=== PATIENT | female | born 1965 | race Caucasian/White ===

== ENCOUNTER 2017-08-10 13:24 | Emergency (ER) | payer BC, OTHER ==
[~2017-08-10] VITALS: Ht 157.5 cm; Wt 75.0 kg
[~2017-08-10 13:24] MED LIST: ALPR0.25 PO; CARD120C4 PO; CYMB60CA PO
[2017-08-10 13:35] VITALS: BP 135/78; PULSE 130; RESP 18; TEMP 97.7; O2SAT 100
[2017-08-10] MEDS ORDERED: SODIUM CHLORID 0.9% 500 ML INJ 500 ML IV ONE (14:00)
[2017-08-10] MEDS ORDERED: SODIUM CHLORIDE 0.9% FLUSH 10 ML FLUSH IVF PRN (14:00)
[2017-08-10 14:13] LABS: AUTOMATED NEUTROPHIL # 8.1 TH/MM3 (1.8-7.7); BASOPHIL # 0.1 TH/MM3 (0-0.2); BASOPHIL % 0.8 % (0.0-2.0); EOSINOPHIL # 0.1 TH/MM3 (0-0.4); EOSINOPHIL % 0.7 % (0.0-4.0); HEMATOCRIT 40.7 % (35.0-46.0); LYMPHOCYTE # 2.3 TH/MM3 (1.0-4.8); MEAN CELL VOLUME 63.3 FL (80.0-100.0); MEAN CORPUSCULAR HEMOGLOBIN 19.8 PG (27.0-34.0); MEAN CORPUSCULAR HGB CONC 31.3 % (32.0-36.0); MONO % 6.3 % (0.0-8.0); NEUT % 72.2 % (16.0-70.0); PLATELET COUNT 229 TH/MM3 (150-450); RED BLOOD COUNT 6.43 MIL/MM3 (4.00-5.30); RED CELL DISTRIBUTION WIDTH 15.5 % (11.6-17.2); WHITE BLOOD COUNT 11.3 TH/MM3 (4.0-11.0)
[2017-08-10] MEDS ORDERED: ALPR0.5T3 PO (14:14)
[2017-08-10] MEDS ORDERED: CARD180C5 PO (14:14)
[2017-08-10] MEDS ORDERED: CYMB60CA PO (14:14)
[2017-08-10 14:15] LABS: HEMO FLAGS AUTO DIFF
--- NOTE | 2017-08-10 14:19 | PD ---
HPI Chief Complaint: Cardiac Complaint Time Seen by Provider: 13:54 Travel History International Travel<30 days: No Contact w/Intl Traveler<30days: No Traveled to known affect area: No History of Present Illness HPI 51-year-old female presents with palpitation feeling for the past hour. 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 Delacruz recently increased her Cardizem to 180 mg. She states that she has history of SVT. She states she has tried vagal maneuvers at home. She denies any complaints other than mild shortness of breath. Quality is palpitations. Severity is progressive. She states her heart rate at home was in the 150s. PFSH Past Medical History Anxiety: Yes (THALASSEMIA) Depression: Yes Heart Rhythm Problems: Yes (hx SVT) Cardiovascular Problems: Yes (SVT) Diminished Hearing: No Kidney Stones: Yes Tetanus Vaccination: > 5 Years ?: Not Menopausal: Yes Past Surgical History Section: Yes Social History Alcohol Use: Yes (RARE) Tobacco Use: No Substance Use: No Allergies-Medications (Allergen,Severity, Reaction): Coded Allergies: No Known Allergies (Verified , 08/10/17) Reported Meds & Prescriptions Reported Meds & Active Scripts Active Reported Alprazolam 0.5 Mg Tab 0.5 Mg PO DAILY PRN Cardizem CD 24 HR (Diltiazem CD 24 HR) 180 Mg Caper 180 Mg PO HS Cymbalta DR (Duloxetine HCl) 60 Mg Capdr 60 Mg PO HS Review of Systems Except as stated in HPI: all other systems reviewed are Neg Physical Exam Narrative GENERAL: Well-nourished, well-developed patient. SKIN: Warm and dry. HEAD: Normocephalic and atraumatic. EYES: No injection or drainage. ENT: No nasal drainage noted. NECK: Supple, trachea midline. CARDIOVASCULAR: Tachycardic rate and regular rhythm RESPIRATORY: Breath sounds equal bilaterally. No accessory muscle use. GASTROINTESTINAL: Abdomen soft, non-tender, nondistended. EXTREMITIES: No edema. BACK: Nontender without obvious deformity. NEUROLOGICAL: Awake and alert. Motor and sensory grossly within normal limits. Normal speech. Data Data Last Documented VS Vital Signs Date Time Temp Pulse Resp B/P (MAP) Pulse Ox O2 Delivery O2 Flow Rate FiO2 08/10/17 15:15 88 18 133/67 (89) 98 Room Air 08/10/17 13:35 97.7 Orders Orders Electrocardiogram (08/10/17 14:00) Ckmb (Isoenzyme) Profile (08/10/17 14:00) Complete Blood Count With Diff (08/10/17 14:00) Comprehensive Metabolic Panel (08/10/17 14:00) Magnesium (Mg) (08/10/17 14:00) Prothrombin Time / Inr (Pt) (08/10/17 14:00) Act Partial Throm Time (Ptt) (08/10/17 14:00) Troponin I (08/10/17 14:00) Chest, Single Ap (08/10/17 14:00) Ecg Monitoring (08/10/17 14:00) Bilateral Bp Monitoring (08/10/17 14:00) Iv Access Insert/Monitor (08/10/17 14:00) Oximetry (08/10/17 14:00) Sodium Chloride 0.9% Flush (Ns Flush) (08/10/17 14:00) Sodium Chlorid 0.9% 500 Ml Inj (Ns 500 M (08/10/17 14:00) Labs Laboratory Tests Test 08/10/17 14:00 White Blood Count 11.3 TH/MM3 Red Blood Count 6.43 MIL/MM3 Hemoglobin 12.7 GM/DL Hematocrit 40.7 % Mean Corpuscular Volume 63.3 FL Mean Corpuscular Hemoglobin 19.8 PG Mean Corpuscular Hemoglobin Concent 31.3 % Red Cell Distribution Width 15.5 % Platelet Count 229 TH/MM3 Mean Platelet Volume 10.7 FL Neutrophils (%) (Auto) 72.2 % Lymphocytes (%) (Auto) 20.0 % Monocytes (%) (Auto) 6.3 % Eosinophils (%) (Auto) 0.7 % Basophils (%) (Auto) 0.8 % Neutrophils # (Auto) 8.1 TH/MM3 Lymphocytes # (Auto) 2.3 TH/MM3 Monocytes # (Auto) 0.7 TH/MM3 Eosinophils # (Auto) 0.1 TH/MM3 Basophils # (Auto) 0.1 TH/MM3 CBC Comment AUTO DIFF Differential Comment AUTO DIFF CONFIRMED Target Cells 1+ Ovalocytes 2+ Prothrombin Time 9.9 SEC Prothromb Time International Ratio 0.9 RATIO Activated Partial Thromboplast Time 28.1 SEC Blood Urea Nitrogen 19 MG/DL Creatinine 1.20 MG/DL Random Glucose 95 MG/DL Total Protein 8.2 GM/DL Albumin 3.9 GM/DL Calcium Level 9.7 MG/DL Magnesium Level 2.3 MG/DL Alkaline Phosphatase 64 U/L Aspartate Amino Transf (AST/SGOT) 21 U/L Alanine Aminotransferase (ALT/SGPT) 21 U/L Total Bilirubin 0.8 MG/DL Sodium Level 141 MEQ/L Potassium Level 3.6 MEQ/L Chloride Level 107 MEQ/L Carbon Dioxide Level 22.3 MEQ/L Anion Gap 12 MEQ/L Estimat Glomerular Filtration Rate 47 ML/MIN Total Creatine Kinase 67 U/L Troponin I LESS THAN 0.02 NG/ML MDM Medical Decision Making Medical Screen Exam Complete: Yes Emergency Medical Condition: Yes Medical Record Reviewed: Yes (past history confirmed) Interpretation(s) EKG is tachycardic in the 120s with ST depression inferior laterally without ST segment elevation it is regular in rhythm CBC & BMP Diagram 08/10/17 14:00 Total Protein 8.2, Albumin 3.9, Calcium Level 9.7, Magnesium Level 2.3, Alkaline Phosphatase 64, Aspartate Amino Transf (AST/SGOT) 21, Alanine Aminotransferase (ALT/SGPT) 21, Total Bilirubin 0.8 Differential Diagnosis SVT, sinus tachycardia, A. fib RVR Narrative Course Will check blood work, chest x-ray, EKG and discuss with her auto body builder apprentice [id number] when I went to check on patient she was in sinus rhythm in the 70s and states she converted when the x-ray tech asked her to take a deep breath labs without emergent process, Patient denies any new complaints and states that they are feeling better. Patient happy with care, all questions answered. Patient knows that follow up is incumbent on them and to return to the emergency room immediately if new or worsening symptoms develop. Patient given strict return precautions, vitals reviewed and are normal, agrees to further workup as an outpatient. Physician Communication Physician Communication dr lee states ok to follow in office with dr delacruz Diagnosis Primary Impression: Supraventricular tachycardia Referrals: Alondra Delacruz MD call for appointment Patient Instructions: General Instructions Additional Instructions: return as needed Med/Other Pt SpecificInfo: No Change to Meds Disposition: 01 DISCHARGE HOME Condition: Stable Ibis Kent MD Aug 10, 2017 14:19
[2017-08-10 14:22] VITALS: BP_SYST 128; BP_SYST 138; BP_DIAS 84; PULSE 125; RESP 18; O2SAT 98
[2017-08-10 14:27] LABS: CHLORIDE 107 MEQ/L (98-107); POTASSIUM 3.6 MEQ/L (3.5-5.1); SODIUM (NA) 141 MEQ/L (136-145)
[2017-08-10 14:31] LABS: APTT (PATIENT) 28.1 SEC (24.3-30.1); INTERNATIONAL NORMALIZED RATIO 0.9 RATIO; PROTHROMBIN TIME - PATIENT 9.9 SEC (9.8-11.6)
[2017-08-10 14:32] LABS: ANION GAP 12 MEQ/L (5-15); BICARBONATE 22.3 MEQ/L (21.0-32.0); BLOOD UREA NITROGEN 19 MG/DL (7-18); MAGNESIUM 2.3 MG/DL (1.5-2.5)
[2017-08-10 14:35] LABS: ALT (GPT) 21 U/L (10-53); AST (GOT) 21 U/L (15-37); GLOMERULAR FILTRATION RATE 47 ML/MIN (>89)
[2017-08-10 14:36] LABS: TOTAL BILIRUBIN ADULT 0.8 MG/DL (0.2-1.0)
--- NOTE | 2017-08-10 14:37 | RADRPT ---
EXAM DATE/TIME: 08/10/2017 14:29 [place] COMPARISON: CHEST SINGLE AP, February 09, 2016, 12:11. INDICATIONS : Short of breath MEDICAL HISTORY : None. SURGICAL HISTORY : None. ENCOUNTER: Initial ACUITY: 1 day PAIN SCORE: 0/10 LOCATION: Bilateral chest FINDINGS: Portions inspiratory effort with subtle bilateral lower lobe airspace disease. Cardiomediastinal cont ours are within normal limits. Remainder the exam is unchanged. CONCLUSION: 1. Poor inspiratory effort would presumed bibasilar atelectasis. Mushtaq Garcia MD on August 10, 2017 at 14:34 Board Certified Radiologist. This report was verified electronically.
[2017-08-10 14:38] LABS: ALKALINE PHOSPHATASE 64 U/L (45-117)
[2017-08-10 15:08] LABS: CREATINE KINASE 67 U/L (26-192)
[2017-08-10 15:12] LABS: OVALOCYTES 2+ (NORMAL); SCAN/DIFF AUTO DIFF CONFIRMED; TARGET CELLS 1+ (NORMAL)
[2017-08-10 15:15] VITALS: BP 133/67; PULSE 88; RESP 18; O2SAT 98
--- NOTE | 2017-08-10 15:58 | EKG ---
Date Performed: 08/10/2017 Time Performed: 13:57:45 PTAGE: 51 years EKG: SUPRAVENTRICULAR TACHYCARDIA, POSSIBLY AV MARIA DE JESUS REENTRANT TACHYCARDIA ST/T-WAVE ABNORMALITY , CONSIDER INFERIOR AND LATERAL ISCHEMIA ABNORMAL ECG NO PREVIOUS TRACING DOCTOR: Ismael Ellis Interpretating Date/Time 08/10/2017 15:55:55
[2017-08-10 16:28] VITALS: BP 136/62
== END 2017-08-10 16:29 | disposition home or self-care (01) ==
LOC: PHED 13:24
DX: I47.1 Supraventricular tachycardia (principal); R94.31 Abnormal electrocardiogram [ECG] [EKG]; Z86.79 Personal history of other diseases of the circulatory system; Z86.59 Personal history of other mental and behavioral disorders; Z87.442 Personal history of urinary calculi
CPT/HCPCS: 71010; 80053; 82550; 83735; 84484; 85025; 85610; 85730; 93005; 96360; 99285; J7040

== ENCOUNTER 2018-05-06 06:20 | Day surgery (SDC) | payer BC ==
[~2018-05-06] VITALS: Ht 157.5 cm; Wt 77.5 kg
[2018-05-06] VITALS (13 sets, daily range): BP systolic 104–140; BP diastolic 48–72; PULSE 46–96; RESP 16–18; TEMP 97.9–98; O2SAT 94–100
[~2018-05-06 06:20] MED LIST changes: -ALPR0.25 PO; +ALPR0.5T3 PO; -CARD120C4 PO; +CARD180C5 PO
[2018-05-06] MEDS ORDERED: METOPROLOL TARTRATE 25 MG TAB PO PRN (06:45)
[2018-05-06] MEDS ORDERED: LACTATED RINGER'S 1000 ML IV PRN (06:45)
[2018-05-06] MEDS ORDERED: SODIUM CHLORID 0.9% 500 ML INJ 500 ML IV SCH (06:45)
[2018-05-06] MEDS ORDERED: SODIUM CHLORID 0.9% 500 ML IV PRN (06:45)
[2018-05-06] MEDS ORDERED: CHLORHEXIDINE GLUCONATE 2 % 1 PACK (2 CLOTHS) TOPICAL PRN (06:45)
[2018-05-06] MEDS ORDERED: POVIDONE IODINE 5% (ANTISEPSIS KIT) 4 APPLICATIONS EACH NARE PRN (06:45)
[2018-05-06] MEDS ORDERED: LORazepam 1 MG TAB SL SCH (06:45)
[2018-05-06] MEDS ORDERED: MULTTAB67 PO (07:04)
[2018-05-06] MEDS ORDERED: METO50TA PO (07:04)
[2018-05-06 07:18] LABS: AUTOMATED NEUTROPHIL # 5.3 TH/MM3 (1.8-7.7); BASOPHIL # 0.1 TH/MM3 (0-0.2); BASOPHIL % 0.7 % (0.0-2.0); BICARBONATE 25.9 MEQ/L (21.0-32.0); CALCIUM 8.5 MG/DL (8.5-10.1); CREATININE 0.84 MG/DL (0.50-1.00); EOSINOPHIL # 0.1 TH/MM3 (0-0.4); EOSINOPHIL % 1.6 % (0.0-4.0); HEMATOCRIT 35.6 % (35.0-46.0); HEMOGLOBIN 11.3 GM/DL (11.6-15.3); LYMPH % 27.3 % (9.0-44.0); LYMPHOCYTE # 2.3 TH/MM3 (1.0-4.8); MEAN CELL VOLUME 61.5 FL (80.0-100.0); MEAN CORPUSCULAR HEMOGLOBIN 19.4 PG (27.0-34.0); MEAN CORPUSCULAR HGB CONC 31.6 % (32.0-36.0); MEAN PLATELET VOLUME 10.9 FL (7.0-11.0); MONO % 7.5 % (0.0-8.0); MONOCYTE # 0.6 TH/MM3 (0-0.9); NEUT % 62.9 % (16.0-70.0); PLATELET COUNT 253 TH/MM3 (150-450); PROTHROMBIN TIME - PATIENT 10.6 SEC (9.8-11.6); RED CELL DISTRIBUTION WIDTH 16.6 % (11.6-17.2); WHITE BLOOD COUNT 8.5 TH/MM3 (4.0-11.0)
[2018-05-06] MEDS ORDERED: HEPARIN-NS/PF INJ 500 ML ONE (09:19)
[2018-05-06] MEDS ORDERED: ISOPROTERENOL INJ PREMIX 50 ML IV ONE (09:39)
[2018-05-06] MEDS ORDERED: MIDAZOLAM HCL 2 MG/2 ML VIAL ONE (10:52)
--- NOTE | 2018-05-06 10:55 | CATHPROC ---
[employer] HIS Report Study Information Study Number Admission Scheduled Start Study Start [id number] May 06 2018 6:20AM 05/06/2018 May 06 2018 9:00AM [place] [facility] Electrophysiology Study Admit Source Facility Department Emergency department [facility] - Fire Engine Pump Operator Physician and Clinical Staff Initial Patito Aguilera Daycare Manager Tiff Vallejo,VIDEO EDITOR TECH2 Daycare Manager Shaila Rider,PUBLIC RELATIONS SUPERVISOR Other Anesthesia, OPERATING ROOM SCHEDULER Recorder Brittany Banerjee ,JETHRON Scrub Jeff iWnn,RT(R) Procedures Performed Procedure Location (Site) Vessel Name Ablation Procedure RF Ablation Isthmus Other Equipment Time Missile Mechanic Description Size Mfg Part Number Used/Scraped BIOSENSE BACH CATHETER, CELSIUS, 4MM, D [id number] 10:27 FR 7 Used INC. TYPE QUAD *[id number] 09:43 Echo360 BLANKET,WARM AIR CCL * Used *[id number] 09:43 Echo360 PACK, CCL CUSTOM * Used *[id number] 09:43 VideoLens PACER GOODWIN, LIMB * 2530 *[id number] Used [id number] 09:50 [employer] MEDICAL CATHETER, JSN, QUAD FR 5 Used *[id number] 09:50 [employer] MEDICAL CATHETER, JSN, QUAD FR 5 Used *[id number] 09:52 [employer] MEDICAL CATHETER, JSN, QUAD FR 5 Used *[id number] 09:52 [employer] MEDICAL CATHETER, JSN, QUAD FR 5 Used *[id number] 09:43 [employer] ALICE MEDICAL ELECTRODE KIT, LAZ X SURFACE * Used *[id number] 09:44 [employer] SHEATH, EPS, FR5 FAST CATH FR 5 Used *[id number] 09:44 [employer] MEDICAL SHEATH, EPS, FR5 FAST CATH FR 5 Used *[id number] 09:44 [employer] MEDICAL SHEATH, EPS, FR5 FAST CATH FR 5 Used *[id number] 09:44 [employer] MED[employer] SHEATH, EPS, FR6 FAST CATH FR 6 Used *[id number] 09:44 [employer] MEDICAL SHEATH, EPS, FR8 FAST CATH FR 8 Used *[id number] [facility] P[facility], ELECTROSURGICAL 09:43 * [id number] *[id number] Used SURGICAL GROUNDING (BLUE) Labs Hgb (g/dl) Hct (%) WBC (l/cumm) Platelets (thousands) 11.60-17.00 35.00-51.00 4.00-11.00 150.00-450.00 11.3 35.6 8.5 253 Glucose (mg/dl) BUN (mg/dl) Creatinine (mg/dl) BUN:Creatinine (1:x) 74.00-106.00 7.00-18.00 0.50-1.30 10.00-20.00 84 18 0.8 22.5 Na (meq/l) K (meq/l) 136.00-145.00 3.50-5.10 143 3.7 INR (PTT:PT) 0.90-1.10 1 CPK-MB (ng/ML) 0.50-3.60 Not Drawn Medication Medication Total Dose (Bolus/Oral) Medication Total Dosage/Unit 1% XYLOCAINE 20 mL Medications (Bolus/Oral) Medication Time Given Dosage/Unit Administered By Reason 1% XYLOCAINE 05/06/2018 9:42:12 AM 10 mL Patito Ayers 10 mL 1% XYLOCAINE given in lab by Patito Ayers in Left Groin via Subcutaneous. Ordered by Stanley Ayers 1% XYLOCAINE 05/06/2018 9:46:10 AM 10 mL Patito Ayers 10 mL 1% XYLOCAINE given in lab by Patito Ayers in Right Groin via Subcutaneous. Ordered by Hedy Ayers. Medication (Drip) Medication Time Given Dosage/Unit Concentration/Unit Diluent (ml) Solution ISUPREL 05/06/2018 9:55:50 AM 4 mcg/min 1 mg 250 NaCl .9 4 mcg/min ISUPREL given in lab by Anesthesia, OPERATING ROOM SCHEDULER via Peripheral IV. Pump/Drip Flow = 60 ml/hr using NaCl .9 with a concentration of 1 mg in 250 ml. Ordered by Patito Ayers. ISUPREL 05/06/2018 10:31:55 AM 4 mcg/min 1 mg 250 NaCl .9 4 mcg/min ISUPREL given in lab by Anesthesia, OPERATING ROOM SCHEDULER via Peripheral IV. Pump/Drip Flow = 60 ml/hr using NaCl .9 with a concentration of 1 mg in 250 ml. Ordered by Patito Ayers. ISUPREL DRIP STOPPED 05/06/2018 10:06:09 AM 0 units/hr 0 0 units/hr ISUPREL DRIP STOPPED given in lab by Anesthesia, APLAK. Pump/Drip Flow = 0 ml/hr using [Maya ution Name]. Ordered by Patito Ayers. ISUPREL DRIP STOPPED 05/06/2018 10:38:44 AM 0 units/hr 0 0 units/hr ISUPREL DRIP STOPPED given in lab by Anesthesia, PALAK. Pump/Drip Flow = 0 ml/hr using [Maya ution Name]. Ordered by Patito Ayers. IV Solutions 05/06/2018 9:30:15 AM 50 mL (IV) NaCl .9 IV Solutions given by Anesthesia, OPERATING ROOM SCHEDULER via Peripheral IV. Pump/Drip Flow using NaCl .9. Ordered by Patito Marin. at [facility] IV Solutions 05/06/2018 9:30:38 AM 50 mL (IV) NaCl .9 IV Solutions given by Anesthesia, OPERATING ROOM SCHEDULER via Peripheral IV. Pump/Drip Flow using NaCl .9. Ordered by Patito Marin. at [facility] Initial Case Assessment Cardiovascular HR Rhythm NIBP 49 sb 129/56 Edema Present Skin color Skin None Normal Warm Dry Circulatory - Lower Extremities Color Lower Right Color Lower Left Normal Normal Neurological State Oriented to time-place- Alert Moves all extremities person Respiration - General Respiration Rate SpO2 (%) (B/min) 14 100 Chronological Log Time Study Chronological Log 9:12:51 Patient arrived via Bed. 9:12:57 Anesthesia at bedside. Assumes care of patient. 9:14:55 Patient Name, D.O.B, / Armband Verified By R.N. 9:14:56 Consent signed by the physician and the patient and verified by the Fire Engine Pump Operator staff. 9:14:57 Pre-op and post- op instructions given; patient acknowledges understanding of instructions. 9:15:02 Patient has been NPO for More than 6Hrs. 9:15:03 Skin Breakdown- scab to mid back and LLE 9:18:53 Disposable Defibrillator Pads Placed On Patient. 9:18:57 Kati Prominences Protected 9:20:49 Patient Warmer Placed on the Table. 9:30:02 A # 20 IV was noted in the Forearm (left). Grade = 0 9:30:08 A # 20 IV was noted in the Forearm (right). Grade = 0 IV Solutions given by Anesthesia, OPERATING ROOM SCHEDULER via Peripheral IV. Pump/Drip Flow using NaCl .9. Ordered by Patito Ayers. at 9:30:15 KVO IV Solutions given by Anesthesia, OPERATING ROOM SCHEDULER via Peripheral IV. Pump/Drip Flow using NaCl .9. Ordered by Patito Ayers. at 9:30:38 KVO 9:30:49 History and physical on the chart or being dictated. Assessment: Initial Case, HR=49 BPM, Rhythm=sb, VWGV=710/56 mmhg, Edema=None, Color=Normal, Skin = Warm, Dry Lower Right Extremities: Color=Normal 9:30:52 Lower Left Extremities: Color=Normal Neurological: State=Alert, Ox3, KRISHNAMURTHY Respiration: Resp=14 B/min, BxW2=714 % 9:34:41 Bilateral groins prepped with 2% chlorhexidine, and draped after a 3 minute waiting time. Time Out. Correct patient, procedure, procedure equipment, site and side verified with physician present. Time 9:41:43 concurred by MD, individual staff and OPERATING ROOM SCHEDULER. Time Out #2 - Consents verified, patient in correct position, all results are labled and display ed, safety precautions 9:41:45 taken, antibiotics administered. Time out concurred by MD, individual staff and OPERATING ROOM SCHEDULER in procedur e 9:41:46 Case Start 9:42:12 10 mL 1% XYLOCAINE given in lab by Patito Ayers in Left Groin via Subcutaneous. Ordered by Patito Ayers. 9:45:34 Vascular access was obtained in the Fem Vein (left). 9:45:37 Vascular access was obtained in the Fem Vein (left). 9:45:41 Vascular access was obtained in the Fem Vein (left). 9:45:44 A SHEATH, EPS, FR5 FAST CATH FR 5 was advanced into the Fem Vein (left) using the Percutaneo us technique. 9:45:52 A SHEATH, EPS, FR5 FAST CATH FR 5 was advanced into the Fem Vein (left) using the Percutaneo us technique. 9:45:59 A SHEATH, EPS, FR5 FAST CATH FR 5 was advanced into the Fem Vein (left) using the Percutaneo us technique. 9:46:10 10 mL 1% XYLOCAINE given in lab by Patito Ayers in Right Groin via Subcutaneous. Ordered by Patito Ayers. 9:48:10 Vascular access was obtained in the Fem Vein (right). 9:48:14 Vascular access was obtained in the Fem Vein (right). 9:48:40 A SHEATH, EPS, FR6 FAST CATH FR 6 was advanced into the Fem Vein (right) using the Percutane ous technique. 9:49:33 A SHEATH, EPS, FR8 FAST CATH FR 8 was advanced into the Fem Vein (right) using the Percutane ous technique. A CATHETER, JSN, QUAD FR 5 was advanced vis Fem Vein (right) and placed in the CS. Placement was visually 9:49:41 confirmed under fluoroscopy. A CATHETER, JSN, QUAD FR 5 was advanced vis Fem Vein (left) and placed in the HIS. Placement w as visually 9:50:02 confirmed under fluoroscopy. A CATHETER, JSN, QUAD FR 5 was advanced vis Fem Vein (left) and placed in the HRA. Placement w as visually 9:51:31 confirmed under fluoroscopy. A CATHETER, JSN, QUAD FR 5 was advanced vis Fem Vein (left) and placed in the RVA. Placement w as visually 9:51:46 confirmed under fluoroscopy. 9:53:34 EP study in progress 4 mcg/min ISUPREL given in lab by Anesthesia, OPERATING ROOM SCHEDULER via Peripheral IV. Pump/Drip Flow = 60 ml/h r using NaCl .9 with 9:55:50 a concentration of 1 mg in 250 ml. Ordered by Patito Ayers. 0 units/hr ISUPREL DRIP STOPPED given in lab by Anesthesia, OPERATING ROOM SCHEDULER. Pump/Drip Flow = 0 ml/hr usi ng [Solution Name]. 10:06:09 Ordered by Patito Ayers. 10:16:25 EP study continues A CATHETER, CELSIUS, 4MM, D TYPE QUAD FR 7 was advanced vis Fem Vein (right) and placed in the Isthmus. 10:26:56 Placement was visually confirmed under fluoroscopy. 10:28:49 RF Ablation of the Isthmus with a CATHETER, CELSIUS, 4MM, D TYPE QUAD FR 7. 4 mcg/min ISUPREL given in lab by Anesthesia, OPERATING ROOM SCHEDULER via Peripheral IV. Pump/Drip Flow = 60 ml/h r using NaCl .9 with 10:31:55 a concentration of 1 mg in 250 ml. Ordered by Patito Ayers. 10:32:19 EP study in progress 10:37:29 Incremental Atrial Pacing in progress 0 units/hr ISUPREL DRIP STOPPED given in lab by AnesthesiaPALAK. Pump/Drip Flow = 0 ml/hr nikolai hampton [Solution Name]. 10:38:44 Ordered by Patito Ayers. 10:39:20 Case End (Physician broke scrub) 10:40:22 Catheter(s) removed without difficulty 10:40:34 No case complications noted. 10:40:35 Cine recording checked. 10:41:59 Holding Area notified of successful intervention. 10:42:00 Bedside Report will be given. 10:42:07 Sheath(s) left in place, will be removed in Holding Area 10:42:18 Ablation procedure performed: SVT. 10:42:20 EP Procedure was performed. 10:51:46 Patient moved to [facility] End Study - Contrast Media Used In Study Contrast Total Opened (mL) Total Used (mL) Total Wasted (mL) Omnipaque 0 0 0 End Study - Maximum Contrast Load Max Contrast Load (mL) 484.9 End Study - Radiation Exposure Fluoro Time (minutes) 2.6 End Study - Patient Disposition Complications Transferred To Interventional Outcome No Fire Engine Pump Operator Holding successful
[2018-05-06] MEDS ORDERED: LIDOCAINE HCL 1% 50 ML VIAL INFIL PRN (11:30)
[2018-05-06] MEDS ORDERED: ONDANSETRON HCL 4 MG/2 ML VIAL IV PUSH PRN (11:30)
[2018-05-06] MEDS ORDERED: SODIUM CHLOR 0.9% 250 ML INJ 250 ML IV PRN (11:30)
[2018-05-06] MEDS ORDERED: BACITRACIN OINT 0.9 GM PKT TOP ONE (11:30)
[2018-05-06] MEDS ORDERED: oxyCODONE/ACETAMINOPHEN 5 MG/325 MG TAB PO PRN ×2 (11:30)
[2018-05-06] MEDS ORDERED: ATROPINE SULFATE 1 MG/ML VIAL IV PUSH PRN (11:30)
[2018-05-06] MEDS ORDERED: LORazepam 2 MG/ML VIAL IV PUSH PRN (11:30)
[2018-05-06] MEDS ORDERED: PROPOFOL 200 MG/20 ML AMP IV ONE (12:00)
--- NOTE | 2018-05-06 12:24 | MA ---
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 INDICATIONS FOR PROCEDURE: Mrs. Caruso is a 52-year-old female with frequent episodes of tachyarrhythmia, multiple ER visits, referred for electrophysiology study and ablation. The risks, the nature and the benefits of the procedure are clearly stated to her. Risks include pneumothorax, cardiac perforation, stroke, need for open heart surgery and even . The patient understood and agreed to proceed. PROCEDURE: After written informed consent was obtained, the patient was brought to the EP lab where she was prepped and draped in the usual sterile fashion. Conscious sedation was initiated and maintained throughout the procedure by the anesthesiologist. Once sedation was verified, the right and left inguinal area was anesthetized with 2% Xylocaine. Using modified Seldinger technique, the left femoral vein was cannulated on 3 occasions and 3 guidewires were advanced over the wire. Three 5-Moroccan Hemaquets were advanced. Then, the right femoral vein cannulated on 2 occasions, two guidewires were advanced. Over the wire a 6 and an 8-Moroccan Hemaquet were advanced. Then, under fluoroscopic guidance through the 5 and 6-Moroccan Hemaquet, four 5-Moroccan Mague curved quadripolar electrophysiology catheters were advanced and placed on the His, upper right atrium, coronary sinus and right ventricular apex. Basic interval was measured and were within normal limits. At this point, atrial pacing protocol was performed. Atrial pacing protocol consisted of incremental atrial pacing as well as program stimulation with 110 cycle length up to 2 extrastimuli delivered. During atrial pacing protocol at baseline no tachyarrhythmia was induced. Some echo beats seen. Then, ventricular pacing protocol was performed. There was no VA conduction. No tachyarrhythmia was induced. Then, Isuprel infusion was infused at 4 mcg. Atrial pacing protocol was repeated again. During atrial pacing protocol, over 300 millisecond jump observed as well as echo beat on multiple occasions but no tachyarrhythmia was induced. Then ventricular pacing protocol was repeated again there was VA. No tachyarrhythmia was induced. Then atrial pacing protocol was repeated again. No preexcitation, but there was a long jump observed. 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 I decided to proceed with slow pathway ablation. Through the 8-Moroccan Hemaquet, a PacerPro Figueroa D-curved 4 mm mapping and radiofrequency ablation catheter was advanced. Using Energy Excelerator endocardial solution mapping system, a 3-dimensional configuration of the right atrium was obtained. Then, the catheter was placed at the tricuspid valve annulus. When a big V and a small A observed, radiofrequency energy was delivered. Multiple junctional beats were observed. Further burn was delivered in the area. Then, atrial pacing protocol was repeated. Again, no echo beats, no jumps observed. Post-isuprel again no echo beat, no jump observed. At that point, the procedure was complete. All catheters were removed. The patient is going to be transferred to the recovery room. Blood loss minimal. 1, ELECTROCARDIOGRAM: At baseline the patient was in sinus. Post-procedure electrocardiogram is unchanged. 2. BASIC INTERVAL: Base cycle length was around 940 milliseconds, AH was at 100 and HV was around 40 milliseconds. 3. ATRIAL PACING PROTOCOL: Echo beat and jump observed. 4. VENTRICULAR PACING PROTOCOL: No tachyarrhythmia was induced. 5. TACHYARRHYTHMIA: Slow pathway was mapped and ablated. Ablation was successful. 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 COMMENT AND RECOMMENDATIONS: The patient is going to be transferred to the recovery room, will be observed. When stable, will be discharged home. MD REJI Alonso/XIN , 11:42 AM , 12:23 PM
--- NOTE | 2018-05-06 13:22 | EKG ---
Date Performed: 05/06/2018 Time Performed: 07:07:40 PTAGE: 52 years EKG: Sinus bradycardia. Low QRS voltages in precordial leads Borderline ECG Compared to prior el ectrocardiogram, Sinus bradycardia has replaced supraventricular tachycardia. PREVIOUS TRACING : 08/10/2017 13.57 DOCTOR: Octavio Joseph Interpretating Date/Time 05/06/2018 13:21:49
[2018-05-06] MEDS: DULoxetine HCl DR 60 MG CAP PO SCH (21:33)
[2018-05-07] VITALS (10 sets, daily range): BP systolic 98–137; BP diastolic 53–67; PULSE 48–69; RESP 16; TEMP 97.8–98.4; O2SAT 97–98
[2018-05-07 06:35] LABS: PROTHROMBIN TIME - PATIENT 10.1 SEC (9.8-11.6)
--- NOTE | 2018-05-07 07:49 | PD.CARD.PN ---
Subjective Subjective Remarks Feels okay. Objective Medications Current Medications Medications (Trade) Dose Ordered Sig/Neno Route Start Time Stop Time Status Last Admin Sodium Chloride 500 ml @ 30 mls/hr [id number] IV 05/06/18 06:45 (Ativan) 1 mg [employer] SL 05/06/18 06:45 05/09/18 06:44 Lactated Ringer's 1,000 ml @ 30 mls/hr Q24H PRN IV 05/06/18 06:45 05/09/18 06:44 Sodium Chloride 500 ml @ 30 mls/hr [id number] PRN IV 05/06/18 06:45 05/09/18 06:44 (Lopressor) 25 mg [employer]IC PRN PO 05/06/18 06:45 05/09/18 06:44 (Betadine 5% Antisepsis Kit) 1 applic [employer]IC PRN EACH NARE 05/06/18 06:45 05/09/18 06:44 (Chlorhexidine 2% Cloth) 3 pack [employer]IC PRN TOPICAL 05/06/18 06:45 05/09/18 06:44 (Percocet 5-325 Mg) 1 tab Q4H PRN PO 05/06/18 11:30 05/06/18 21:36 (Percocet 5-325 Mg) 2 tab Q4H PRN PO 05/06/18 11:30 05/06/18 14:22 (Ativan Inj) 0.5 mg UNSCH PRN IV PUSH 05/06/18 11:30 05/07/18 11:29 (Atropine Inj) 0.5 mg UNSCH PRN IV PUSH 05/06/18 11:30 Sodium Chloride 250 ml @ 500 mls/hr ONCE PRN IV 05/06/18 11:30 05/07/18 11:29 (Zofran Inj) 4 mg Q4H PRN IV PUSH 05/06/18 11:30 (Xylocaine 1% Inj (50 ml)) 10 ml UNSCH PRN INFIL 05/06/18 11:30 05/07/18 11:29 (C[address]alta Dr) 60 mg DAILY PO 05/06/18 21:00 05/06/18 21:33 Vital Signs / I&O Vital Signs Date Time Temp Pulse Resp B/P (MAP) Pulse Ox O2 Delivery O2 Flow Rate FiO2 05/07/18 06:00 69 05/07/18 05:00 58 05/07/18 04:00 62 05/07/18 03:00 48 05/07/18 03:00 97.8 52 16 98/53 (68) 97 05/07/18 02:00 48 05/07/18 01:00 50 05/07/18 00:00 50 05/06/18 23:30 97.9 58 16 104/54 (71) 97 05/06/18 23:00 52 05/06/18 22:00 56 05/06/18 21:00 52 05/06/18 20:00 50 05/06/18 20:00 97.9 52 16 107/48 (67) 97 05/06/18 19:00 46 05/06/18 18:00 46 05/06/18 17:00 46 05/06/18 16:41 98.0 51 16 116/56 (76) 100 05/06/18 16:00 46 05/06/18 15:00 50 05/06/18 14:40 98.0 50 16 109/72 (84) 99 05/06/18 11:00 99 Room Air I/O 05/06/18 05/06/18 05/06/18 05/07/18 05/07/18 05/07/18 07:00 15:00 23:00 07:00 15:00 23:00 Intake Total 240 ml 240 ml Output Total 0 ml Balance 240 ml 240 ml Intake Oral 240 ml 240 ml Output Urine Total 0 ml # Voids 3 # Bowel Movements 0 Physical Exam GENERAL: Well-nourished, well-developed patient. SKIN: Warm and dry. Groin site soft without bruising or bleeding. HEAD: Normocephalic. EYES: No scleral icterus. No injection or drainage. NECK: Supple, trachea midline. No JVD or lymphadenopathy. CARDIOVASCULAR: Regular rate and rhythm without murmurs, gallops, or rubs. RESPIRATORY: Breath sounds equal bilaterally. No accessory muscle use. GASTROINTESTINAL: Abdomen soft, non-tender, nondistended. EXTREMITIES: No cyanosis, or edema. NEUROLOGICAL: Awake, alert, and oriented x 3. Non-focal. 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 Discharge home. Follow-up with Dr. Ayers in 2 weeks per my discussion with him. Stephany Aparicio May 07, 2018 07:49
[2018-05-07] MEDS: DULoxetine HCl DR 60 MG CAP PO SCH ×2 (08:49→08:51)
--- NOTE | 2018-05-07 20:28 | EKG ---
Date Performed: 05/07/2018 Time Performed: 04:54:10 PTAGE: 52 years EKG: Sinus bradycardia Poor R wave progression - probable normal variant Low QRS voltages in pre cordial leads Borderline ECG PREVIOUS TRACING : 05/06/2018 13.23 Since the previous tracing, no significant change noted DOCTOR: Jo Ann Degroot Interpretating Date/Time 05/07/2018 20:26:14
--- NOTE | 2018-05-07 21:40 | EKG ---
Date Performed: 05/06/2018 Time Performed: 13:23:22 PTAGE: 52 years EKG: Sinus bradycardia. Inferior ST-T changes are nonspecific Low QRS voltages in precordial selina ds Borderline ECG PREVIOUS TRACING : 05/06/2018 07.07 Since the previous tracing, no significant change noted DOCTOR: Jo Ann Degroot Interpretating Date/Time 05/07/2018 21:38:51
== END 2018-05-07 11:11 | disposition home or self-care (01) ==
LOC: HDOC 06:20 → HDIC 06:20 → HCIS 14:07 → HDOC 05-07 11:11
PROVIDERS: ATTEND Internal Medicine Interventional Cardiology
DX: I47.1 Supraventricular tachycardia (principal); R00.2 Palpitations; D56.9 Thalassemia, unspecified; E55.9 Vitamin D deficiency, unspecified; H40.9 Unspecified glaucoma; Z01.818 Encounter for other preprocedural examination; R42 Dizziness and giddiness; R53.83 Other fatigue; R94.31 Abnormal electrocardiogram [ECG] [EKG]
CPT/HCPCS: 00537; 80048; 85025; 85610; 85730; 86850; 86900; 86901; 93005; 93613; 93623; 93653; C1730; C1732; C2630; J1644; J2250